=== PATIENT | male | born 1975 | race Caucasian/White ===

== ENCOUNTER 2018-10-10 01:48 | Outpatient (CLI) | payer MEDICARE, MEDICAID, SELFPAY ==
--- NOTE | 2018-10-10 11:30 | SATEXT_ITS ---
Assessment: Sammy presents for nutritional counseling for weight management. He reports that he does not have any regular eating pattern and would just like menus to follow. We did not get a weight at this visit but his referral is for BMI of 33-33.9 as well as prediabetes. He is currently not physically active. Nutritional Diagnosis: class 1 obesity as evidenced by BMI of 33-33.9 kg/m2 Intervention: Provided two weeks of menus for Sammy at his caloric level with simple recipes as well as shopping lists to go along with the menus. He stated the information would prove very helpful for him. With regard to physical activity, I informed Sammy that just 20 minutes of walking daily can help to put off getting type 2 diabetes and pointed out to him that prediabetes was on his referral form. He stated that he will start walking for 20 minutes per day 3 to 4 days per week. Monitoring and Evaluation: Sammy will monitor his success with the meal plans and will call me with any nutrition questions or concerns. Sammy will evaluate based on progress, his need to return for follow up. Thank you for the referral. Total time spent with patient was 25 minutes face to face.
== END 2018-10-10 02:08 ==
PROVIDERS: PCP Nurse Practitioner; Visit Provider Dietitian, Registered
DX: R73.03 Prediabetes (principal); E66.8 Other obesity; Z68.33 Body mass index [BMI] 33.0-33.9, adult; Z71.3 Dietary counseling and surveillance
CPT/HCPCS: 97802

== ENCOUNTER 2020-03-29 15:49 | Outpatient (REF) | payer OTHER, MEDICAID, SELFPAY ==
[2020-03-29 19:19] LABS: ALT 40 U/L (16-63); AST 22 U/L (15-37); Albumin 3.8 g/dL (3.4-5.0); Alkaline Phosphatase 88 U/L (46-116); Anion Gap 7.1 mmol/L (3-11); BUN 20 mg/dL (7-18); Bilirubin, Total 0.2 mg/dL (0.2-1.0); CO2 27.9 mmol/L (21.0-32.0); CREATININE 0.91 mg/dL (0.70-1.30); Calcium 9.3 mg/dL (8.5-10.1); Calculated LDL 158 mg/dL (<100); Chloride 109 mmol/L (98-107); Cholesterol 256 mg/dL (<200); Glucose 101 mg/dL (74-106); HDL Cholesterol 39 mg/dL (40-60); Potassium 4.2 mmol/L (3.5-5.1); Sodium 144 mmol/L (136-145); Total Protein 6.8 g/dL (6.4-8.2); Triglyceride 296 mg/dL (<150)
[2020-03-29 19:38] LABS: Vitamin D 25 Total 52.5 ng/ml (30-100)
== END 2020-03-29 16:09 ==
LOC: NCHCN 15:49
PROVIDERS: PCP Nurse Practitioner; Visit Provider Nurse Practitioner
DX: E78.5 Hyperlipidemia, unspecified (principal); E55.9 Vitamin D deficiency, unspecified; F41.8 Other specified anxiety disorders; Z68.38 Body mass index [BMI] 38.0-38.9, adult
CPT/HCPCS: 80053; 80061; 82306